=== PATIENT | female | born 1940 | race Caucasian/White ===

== ENCOUNTER → 2018-04-27 16:02 | Outpatient (CLI) | payer MEDICARE ==
[2015-05-16 13:40] VITALS: BMI 31.0
[~2018-04-27 16:02] MED LIST: AMBIEN10 MG PO; LEVOXYL25 MCG PO; LISINOPRIL-HCTZ1 T11 PO; PRILOSEC20 MG PO; PROZAC20 MG PO; VITAMIN D250000 UNIT PO; ZANAFLEX4 MG PO
== END | disposition home or self-care (01) ==
LOC: D.CT 16:02
DX: R10.9 Unspecified abdominal pain (principal)